=== PATIENT | female | born 1980 | race Caucasian/White ===

== ENCOUNTER 2021-10-17 19:13 | Emergency (ER) | payer OTHER ==
[~2021-10-17] VITALS: Ht 167.6 cm; Wt 97.5 kg
[2021-10-17] MEDS ORDERED: METOCLOPRAMIDE HCL 10 MG/2ML VIAL IV STA (19:30)
[2021-10-17] MEDS ORDERED: DIPHENHYDRAMINE HCL INJ 50 MG/ML VIAL IV STA (19:30)
[2021-10-17] MEDS ORDERED: METHYLPREDNISOLONE SOD SUCC 125 MG/2ML VIAL IV STA (19:30)
[2021-10-17] MEDS ORDERED: KETOROLAC TROMETHAMINE 30 MG/ML VIAL IV STA (19:30)
[2021-10-17] MEDS ORDERED: SODIUM CHLORIDE 0.9% 1000ML 1,000 ML IV STA (19:30)
[2021-10-17] MEDS ORDERED: METOCLOPRAMIDE HCL 10 MG/2ML VIAL ONE (20:03)
[2021-10-17] MEDS ORDERED: SODIUM CHLORIDE 0.9% 1000ML 1,000 ML ONE (20:04)
[2021-10-17] MEDS ORDERED: METHYLPREDNISOLONE SOD SUCC 125 MG/2ML VIAL ONE (20:04)
[2021-10-17] MEDS ORDERED: KETOROLAC TROMETHAMINE 30 MG/ML VIAL ONE (20:04)
[2021-10-17] MEDS ORDERED: DIPHENHYDRAMINE HCL INJ 50 MG/ML VIAL ONE (20:04)
[2021-10-17] MEDS ORDERED: FIORICET 50-301 EACH PO (21:11)
[2021-10-17 21:15] VITALS: BP 142/74
== END 2021-10-17 21:15 | disposition home or self-care (01) ==
LOC: FSED 19:17
DX: R51.9 Headache, unspecified (principal); F41.9 Anxiety disorder, unspecified; I49.8 Other specified cardiac arrhythmias; Z98.84 Bariatric surgery status
CPT/HCPCS: 70450; 80048; 81025; 85025; 96374; 96375; 96376; 99284; J1200; J1885; J2765; J2930; J7030